=== PATIENT | female | born 1955 | race Caucasian/White ===

== ENCOUNTER 2017-04-29 05:55 | Day surgery (SDC) | payer MEDICARE, MEDICAID ==
[~2017-04-29] VITALS: Ht 160 cm; Wt 65.6 kg
[~2017-04-29 05:55] MED LIST: ALBU18HF INH; AMLO5TAB4 PO; APIX5TAB PO; ASPI-496 PO; ASPI-650 PO; ASPI325T17 PO; BISA10SU2 PR; CETI10TA18 PO; DIAZ5TAB PO; DIPH25CA61 PO; DOCU-131 PO; ERGO500017 PO; ESCI20TA10 PO; ESCI5TAB PO; FLUT9.9S NS; GABA-826 PO; HYDR-3237 PO; HYDR-3307 PO; IBUP-1222 PO; IBUP100T PO; LISI-170 PO; LOSA50TA6 PO; MAG355OR14 PO; MAGN400O7 PO; MOME13HF3 INH; OMEP-110 PO; ONDA8TAB16 SL; OXYC-306 PO; PANT40TA3 PO; POLY17PO5 PO; RABE20TA26 PO; SENN-31 PO; TRAM50TA2 PO; VENL37.57 PO; ZOLP-413 PO; [UNRECOGNIZED DRUG - OTHER]; phenergan PO
[2017-04-29] MEDS ORDERED: BUPIVACAINE/PF 0.5% ONE (06:18)
[2017-04-29] MEDS ORDERED: EPINEPHRINE 1 MG/ML, 1ML ONE (06:18)
[2017-04-29] MEDS ORDERED: LACTATED RINGERS 1,000 ML IV SCH (07:09)
[2017-04-29 07:11] VITALS: BP 108/75
[2017-04-29] MEDS ORDERED: CEFAZOLIN 1,000 MG ONE (08:14)
[2017-04-29] MEDS ORDERED: PROPOFOL 10 MG/ML, 20ML ONE (08:14)
[2017-04-29] MEDS ORDERED: ONDANSETRON 2MG/ML, 2ML ONE (08:14)
[2017-04-29] MEDS ORDERED: DEXAMETHASONE 4 MG/ML, 1ML ONE (08:14)
[2017-04-29] MEDS ORDERED: NEOSTIGMINE 1 MG/ML, 10ML ONE (08:14)
[2017-04-29] MEDS ORDERED: GLYCOPYRROLATE 0.2MG/1ML, 5ML ONE (08:14)
[2017-04-29] MEDS ORDERED: ROCURONIUM 10MG/ML,5ML ONE (08:14)
[2017-04-29] MEDS ORDERED: SUCCINYLCHOLINE 20 MG/ML, 10ML ONE (08:14)
[2017-04-29] MEDS ORDERED: MIDAZOLAM 1 MG/ML, 2ML ONE ×2 (08:15→09:12)
[2017-04-29] MEDS ORDERED: FENTANYL PF 100 MCG/2ML ONE ×2 (08:16→08:34)
[2017-04-29] MEDS ORDERED: PROMETHAZINE 25 MG/ML, 1ML ONE (08:54)
[2017-04-29] MEDS ORDERED: morphine SULFATE 10 MG/ML, 1ML ONE (09:11)
[2017-04-29] MEDS ORDERED: OXYcodone 5 MG/5 ML ORAL.SOL UDC ONE (09:12)
[2017-04-29] MEDS ORDERED: HYDROcodone/APAP 7.5-325MG/15ML UDC PO PRN (09:30)
[2017-04-29] MEDS ORDERED: MEPERIDINE/PF 25MG/0.5ML IVPush PRN (09:30)
[2017-04-29] MEDS ORDERED: OXYcodone 5 MG/5 ML ORAL.SOL UDC PO PRN (09:30)
[2017-04-29] MEDS ORDERED: ACETAMINOPHEN 325 MG TABLET PO PRN (09:30)
[2017-04-29] MEDS ORDERED: MIDAZOLAM 1 MG/ML, 2ML IV PRN (09:30)
[2017-04-29] MEDS ORDERED: PROMETHAZINE 12.5 MG SUPP PR PRN (09:30)
[2017-04-29] MEDS ORDERED: LABETALOL 5MG/ML, 20ML IV PRN (09:30)
[2017-04-29] MEDS ORDERED: ONDANSETRON 2MG/ML, 2ML IVPush PRN (09:30)
[2017-04-29] MEDS ORDERED: hydrALAzine 20 MG/ML, 1ML IV PRN (09:30)
[2017-04-29] MEDS ORDERED: FENTANYL PF 100 MCG/2ML IV PRN (09:30)
[2017-04-29] MEDS ORDERED: morphine SULFATE 10 MG/ML, 1ML IV PRN (09:30)
== END 2017-04-29 11:35 ==
LOC: OUT 05:55
PROVIDERS: ATTEND Surgery
DX: K80.10 Calculus of gallbladder with chronic cholecystitis without obstruction (principal)
CPT/HCPCS: 47562; 88304; C1729; J0171; J0330; J0690; J1100; J2250; J2270; J2405; J2704; J2710; J3010; J3490; J7120